=== PATIENT | female | born 1990 | race Caucasian/White ===

== ENCOUNTER 2018-06-05 08:46 | Emergency (ER) | payer BC ==
[~2018-06-05] VITALS: Ht 180.3 cm; Wt 95.3 kg
[2018-06-05] MEDS ORDERED: ACETAMINOPHEN-1 EAC1 PO (11:19)
[2018-06-05] MEDS ORDERED: IBUPROFEN 800800 MG PO (11:19)
[2018-06-05] MEDS ORDERED: CYCLOBENZAPRINE5 MG PO (11:19)
[2018-06-05 11:40] VITALS: BP 128/85
== END 2018-06-05 11:41 | disposition home or self-care (01) ==
LOC: M.ERS 08:46
DX: S16.9XXA Unspecified injury of muscle, fascia and tendon at neck level, initial encounter (principal); J45.909 Unspecified asthma, uncomplicated; Z90.49 Acquired absence of other specified parts of digestive tract; V89.2XXA Person injured in unspecified motor-vehicle accident, traffic, initial encounter; Y93.89 Activity, other specified; Y92.89 Other specified places as the place of occurrence of the external cause; Y99.8 Other external cause status

== ENCOUNTER 2018-06-19 04:24 | Emergency (ER) | payer BC ==
[~2018-06-19] VITALS: Ht 180.3 cm; Wt 97.5 kg
[~2018-06-19 04:24] MED LIST: ACETAMINOPHEN-1 EAC1 PO; CYCLOBENZAPRINE5 MG PO; IBUPROFEN 800800 MG PO
[2018-06-19 04:28] VITALS: BP 129/61
[2018-06-19] MEDS ORDERED: NORCO 7.5-3251 EACH PO (04:47)
[2018-06-19] MEDS ORDERED: CLEOCIN HCL150 MG PO (04:47)
== END 2018-06-19 05:00 | disposition home or self-care (01) ==
LOC: M.ERS 04:24
DX: K08.89 Other specified disorders of teeth and supporting structures (principal); R22.0 Localized swelling, mass and lump, head; J45.909 Unspecified asthma, uncomplicated; Z90.49 Acquired absence of other specified parts of digestive tract; F17.200 Nicotine dependence, unspecified, uncomplicated

== ENCOUNTER 2018-09-22 08:39 | Emergency (ER) | payer BC ==
[~2018-09-22] VITALS: Ht 180.3 cm; Wt 108.9 kg
[~2018-09-22 08:39] MED LIST changes: +CLEOCIN HCL150 MG PO; +NORCO 7.5-3251 EACH PO
[2018-09-22 09:09] LABS: ABSOLUTE BASOPHILS 0.1 thou/uL (0.0-0.2); ABSOLUTE EOSINOPHILS 0.4 thou/uL (0.0-0.7); ABSOLUTE LYMPHOCYTES 2.3 thou/uL (0.8-5.3); ABSOLUTE MONOCYTES 0.7 thou/uL (0.0-1.2); ABSOLUTE NEUTROPHILS 5.3 thou/uL (1.6-8.1); BASOPHILS 1.3 %; EOSINOPHILS 4.2 %; HEMATOCRIT 39.5 % (37.0-47.0); HEMOGLOBIN 13.5 gm/dL (12.0-15.0); LYMPHOCYTES 26.5 %; MCH 29.3 pg (26.0-34.0); MCHC 34.1 g/dL (28.0-37.0); MONOCYTES 8.3 %; MPV 9.8 fl. (7.2-11.1); NUCLEATED RBCS 0 /100WBC; PLATELET COUNT* 255 thou/uL (150-400); POLYS 59.7 %; RBC 4.59 mil/uL (4.20-5.00); RDW-CV 13.6 % (10.5-14.5); WBC 8.8 thou/uL (4.0-11.0)
[2018-09-22 09:23] LABS: ANION GAP 11 mmol/L (7-16); BUN 11 mg/dL (7-18); CALCIUM 8.9 mg/dL (8.5-10.1); CHLORIDE 105 mmol/L (98-107); CO2 23 mmol/L (21-32); GLUCOSE 130 mg/dL (70-99); POTASSIUM 3.3 mmol/L (3.5-5.1); SODIUM 139 mmol/L (136-145)
[2018-09-22 09:29] LABS: ALBUMIN 3.3 g/dL (3.4-5.0); ALKALINE PHOSPHATASE 81 U/L (46-116); LIPASE 283 U/L (73-393); MAGNESIUM 2.1 mg/dL (1.8-2.4); SGOT 13 U/L (15-37); SGPT 21 U/L (30-65); TOTAL BILIRUBIN 0.3 mg/dL (<0.1-1.0); TOTAL PROTEIN 6.8 g/dL (6.4-8.2); TROPONIN-I LEVEL <0.06 ng/mL (<0.06)
[2018-09-22] MEDS ORDERED: ZPAK PO (10:10)
[2018-09-22 10:36] VITALS: BP 121/61
--- NOTE | 2018-09-22 11:37 | EKG ---
[place] [address] ELECTROCARDIOGRAM REPORT Name: HILLARY CORREA Room: [facility]#: [id number] Admission: 09/22/18 Attend Phys: Discharge: 09/22/18 Date of : [birth year] Report #: [id number] THIS REPORT FOR: //name// [facility] ED Test Date: 2018-09-22 Test Time: 08:44:53 Pat Name: HILLARY CORREA Department: Room: Gender: F Manager Appointment: GEOR[place] : 1990 Requested By: Beto Stern Order Number: [id number] MD: Alfonso Blue Measurements Intervals [place] Rate: 51 P: 44 MN: 141 QRS: 37 QRSD: 106 T: 36 QT: 492 QTc: 454 Interpretive Statements Sinus rhythm No previous ECG available for comparison Electronically Signed On 09-22-2018 11:36:52 CDT by Alfonso Blue [email or web address] <ELECTRONICALLY SIGNED> By: Alfonso Blue MD, [facility] 09/22/18 1136 [id number] Alfonso Blue MD, FACC /EPI
== END 2018-09-22 10:38 | disposition home or self-care (01) ==
LOC: M.ERS 08:39
PROVIDERS: Emergency Medicine Emergency Medical Services
DX: J18.9 Pneumonia, unspecified organism (principal); J45.909 Unspecified asthma, uncomplicated; Z90.49 Acquired absence of other specified parts of digestive tract

== ENCOUNTER 2019-03-12 19:39 | Emergency (ER) | payer BC ==
[~2019-03-12] VITALS: Ht 154.9 cm; Wt 108.9 kg
[~2019-03-12 19:39] MED LIST changes: +ZPAK PO
[2019-03-12 20:09] LABS: URINE BILIRUBIN NEGATIVE (Negative); URINE BLOOD 2+ (Negative); URINE CLARITY CLEAR; URINE COLOR YELLOW; URINE GLUCOSE-RANDOM NEGATIVE (Negative); URINE KETONES NEGATIVE (Negative); URINE LEUKOCYTES-REFLEX NEGATIVE (Negative); URINE NITRITE-REFLEX NEGATIVE (Negative); URINE PROTEIN 2+ (Negative); URINE SPECIFIC GRAVITY >= 1.030 (1.005-1.030); URINE UROBILINOGEN 0.2 E.U./dl (0.2-1.0)
[2019-03-12 20:18] LABS: AMORPHOUS URATES Many /LPF (None Seen); HYALINE CASTS >10 Many /LPF (None Seen); MUCUS >6 Heavy strn/LPF (None Seen); SQUAMOUS >10 Many /LPF (0-3)
[2019-03-12 20:23] LABS: BACTERIA-REFLEX 1-9 Few /HPF (None Seen)
[2019-03-12 20:25] LABS: URINE RBC 3-10 Few /HPF (0-2)
[2019-03-12 20:26] LABS: AMP/METHAMP POSITIVE (Negative); BARBITURATES Negative (Negative); BENZODIAZEPINES Negative (Negative); COCAINE Negative (Negative); METHADONE Negative (Negative); OPIATES Negative (Negative); PCP Negative (Negative); THC POSITIVE (Negative); URINE WBC-REFLEX 0-5 Rare /HPF (0-5)
[2019-03-12 20:35] LABS: ABSOLUTE EOSINOPHILS 0.5 thou/uL (0.0-0.7); ABSOLUTE LYMPHOCYTES 1.6 thou/uL (0.8-5.3); ABSOLUTE MONOCYTES 0.9 thou/uL (0.0-1.2); ABSOLUTE NEUTROPHILS 12.1 thou/uL (1.6-8.1); BASOPHILS 0.3 %; EOSINOPHILS 3.5 %; HEMATOCRIT 43.7 % (37.0-47.0); LYMPHOCYTES 10.6 %; MCH 29.9 pg (26.0-34.0); MCHC 34.3 g/dL (28.0-37.0); MCV 87.1 fL (80.0-100.0); MONOCYTES 5.8 %; MPV 9.8 fl. (7.2-11.1); NUCLEATED RBCS 0 /100WBC; PLATELET COUNT* 236 thou/uL (150-400); POLYS 79.8 %; RBC 5.02 mil/uL (4.20-5.00); RDW-CV 14.4 % (10.5-14.5); WBC 15.2 thou/uL (4.0-11.0)
[2019-03-12 20:57] LABS: ALBUMIN 4.2 g/dL (3.4-5.0); CALCIUM 8.6 mg/dL (8.5-10.1); POTASSIUM 3.8 mmol/L (3.5-5.1); TOTAL BILIRUBIN 0.5 mg/dL (<0.1-1.0); TOTAL PROTEIN 7.9 g/dL (6.4-8.2)
[2019-03-12] MEDS ORDERED: ONDANSETRON HCL4 M2 PO (22:16)
[2019-03-12] MEDS ORDERED: BENTYL 20 MG TA20 M1 PO (22:16)
[2019-03-12 22:36] VITALS: BP 111/61
== END 2019-03-12 22:36 | disposition home or self-care (01) ==
LOC: M.ERS 19:39
PROVIDERS: Nurse Practitioner Family
DX: K52.9 Noninfective gastroenteritis and colitis, unspecified (principal); J45.909 Unspecified asthma, uncomplicated; F17.210 Nicotine dependence, cigarettes, uncomplicated; Z90.49 Acquired absence of other specified parts of digestive tract

== ENCOUNTER 2019-12-25 10:04 | Emergency (ER) | payer BC ==
[~2019-12-25] VITALS: Ht 180.3 cm; Wt 95.3 kg
[~2019-12-25 10:04] MED LIST changes: +BENTYL 20 MG TA20 M1 PO; +ONDANSETRON HCL4 M2 PO
[2019-12-25] MEDS ORDERED: BUTALB-APAP-CA1 EACH PO (10:42)
[2019-12-25] MEDS ORDERED: IBUPROFEN 800800 M1 PO (10:42)
[2019-12-25] MEDS ORDERED: FLEXERIL PO (10:42)
[2019-12-25] MEDS ORDERED: PHENERGAN 25 MG25 M1 PO (10:42)
[2019-12-25 10:54] LABS: ABSOLUTE BASOPHILS 0.1 thou/uL (0.0-0.2); ABSOLUTE EOSINOPHILS 0.4 thou/uL (0.0-0.7); ABSOLUTE LYMPHOCYTES 3.5 thou/uL (0.8-5.3); ABSOLUTE MONOCYTES 0.9 thou/uL (0.0-1.2); BASOPHILS 1.2 %; EOSINOPHILS 3.6 %; HEMATOCRIT 39.8 % (37.0-47.0); HEMOGLOBIN 13.6 gm/dL (12.0-15.0); LYMPHOCYTES 29.5 %; MCH 30.2 pg (26.0-34.0); MCHC 34.1 g/dL (28.0-37.0); MCV 88.3 fL (80.0-100.0); MONOCYTES 7.5 %; MPV 9.7 fl. (7.2-11.1); NUCLEATED RBCS 0 /100WBC; PLATELET COUNT* 224 thou/uL (150-400); POLYS 58.2 %; RBC 4.51 mil/uL (4.20-5.00); RDW-CV 13.3 % (10.5-14.5)
[2019-12-25 11:02] LABS: CALCIUM 8.3 mg/dL (8.5-10.1); CREATININE 0.9 mg/dL (0.6-1.3); POTASSIUM 3.5 mmol/L (3.5-5.1)
[2019-12-25] MEDS ORDERED: AMOXICILLIN 50500 MG PO (12:32)
[2019-12-25 13:05] VITALS: BP 105/60
== END 2019-12-25 13:05 | disposition home or self-care (01) ==
LOC: M.ERS 10:04
PROVIDERS: Nurse Practitioner Family
DX: G43.909 Migraine, unspecified, not intractable, without status migrainosus (principal); K02.9 Dental caries, unspecified; M54.5 Low back pain; J45.909 Unspecified asthma, uncomplicated; Z90.49 Acquired absence of other specified parts of digestive tract

== ENCOUNTER 2021-04-20 22:30 | Emergency (ER) | payer OTHER, BC ==
[~2021-04-20] VITALS: Ht 180.3 cm; Wt 95.3 kg
[~2021-04-20 22:30] MED LIST changes: +AMOXICILLIN 50500 MG PO; +BUTALB-APAP-CA1 EACH PO; +FLEXERIL PO; +IBUPROFEN 800800 M1 PO; +PHENERGAN 25 MG25 M1 PO
[2021-04-20 22:44] VITALS: BP 105/71
== END 2021-04-21 00:05 | disposition left against medical advice (07) ==
LOC: M.ERS 22:30
DX: M54.9 Dorsalgia, unspecified (principal); J45.909 Unspecified asthma, uncomplicated; G43.909 Migraine, unspecified, not intractable, without status migrainosus; Z90.49 Acquired absence of other specified parts of digestive tract; Z53.21 Procedure and treatment not carried out due to patient leaving prior to being seen by health care provider; V49.09XA Driver injured in collision with other motor vehicles in nontraffic accident, initial encounter; Y93.89 Activity, other specified; Y92.89 Other specified places as the place of occurrence of the external cause; Y99.8 Other external cause status